=== PATIENT | male | born 1995 | race Caucasian/White ===

== ENCOUNTER 2018-07-20 17:43 | Emergency (ER) | payer SELFPAY ==
[~2018-07-20] VITALS: Ht 177.8 cm; Wt 80.0 kg
[2018-07-21 01:16] VITALS: BP 113/78
== END 2018-07-21 01:18 | disposition home or self-care (01) ==
LOC: ER 19:00
DX: R07.89 Other chest pain (principal); W01.0XXA Fall on same level from slipping, tripping and stumbling without subsequent striking against object, initial encounter; Y93.89 Activity, other specified; Y92.89 Other specified places as the place of occurrence of the external cause; Y99.8 Other external cause status
CPT/HCPCS: 71045; 93005; 99283